=== PATIENT | female | born 1940 | race Caucasian/White ===

== ENCOUNTER 2017-05-14 05:47 | Outpatient (CLI) | payer MEDICARE, OTHER ==
[~2017-05-14] VITALS: Ht 149.9 cm; Wt 78.9 kg
[~2017-05-14 05:47] MED LIST: NAPR-243 PO; TRM50T PO
[2017-05-14] MEDS ORDERED: SITA1TAB6 PO (14:14)
[2017-05-14] MEDS ORDERED: TRAM50TA2 PO (14:14)
[2017-05-14] MEDS ORDERED: SIMV20TA3 PO (14:14)
[2017-05-14] MEDS ORDERED: ENAL10TA PO (14:14)
[2017-05-14] MEDS ORDERED: CETI10TA17 PO (14:14)
[2017-05-14] MEDS ORDERED: CYCL5TAB PO (14:14)
[2017-05-14] MEDS ORDERED: CLOP75TA28 PO (14:14)
== END 2017-05-14 14:15 ==
LOC: PREOP 05:47
PROVIDERS: ATTEND Surgery
DX: Z01.818 Encounter for other preprocedural examination (principal); Z86.010 Personal history of colon polyps

== ENCOUNTER 2017-05-21 08:27 | Day surgery (SDC) | payer MEDICARE, OTHER ==
[~2017-05-21] VITALS: Ht 149.9 cm; Wt 78.9 kg
[~2017-05-21 08:27] MED LIST changes: +CETI10TA17 PO; +CLOP75TA28 PO; +CYCL5TAB PO; +ENAL10TA PO; +SIMV20TA3 PO; +SITA1TAB6 PO; +TRAM50TA2 PO
[2017-05-21] MEDS ORDERED: NS IV 500 ML 500 ML ONE (08:28)
[2017-05-21] MEDS ORDERED: NS IV 500 ML 500 ML IV PRN (08:36)
[2017-05-21 09:07] VITALS: BP 150/71
--- NOTE | 2017-05-21 09:22 | History & Physicial ---
History of Present Illness History of Present Illness Reason for visit/HPI to undergo surveillance colonoscopy. Previous history of right colon resection to manage a sessile polyp Date of Admission 05/21/17 Date Seen by Provider: May 21, 2017 Time Seen by Provider: 09:21 I consulted on this patient on 05/21/17 09:21 Attending Physician Summer Dean MD Admitting Physician Lisa Del Toro MD Consult Allergies and Home Medications Allergies Coded Allergies: Cephalexin Monohydrate (Verified Allergy, Unknown, 05/21/17) Cephalosporins (Verified Allergy, Unknown, 05/21/17) Penicillins (Verified Allergy, Unknown, 05/21/17) Soap (Verified Allergy, Unknown, 05/21/17) Sulfa (Sulfonamide Antibiotics) (Verified Allergy, Unknown, 05/21/17) acetaminophen (Verified Allergy, Unknown, 05/21/17) aspirin (Verified Allergy, Unknown, 05/21/17) codeine (Verified Allergy, Unknown, 05/21/17) hydrocodone bit (Verified Allergy, Unknown, 05/21/17) meloxicam (Verified Allergy, Unknown, 05/21/17) morphine (Verified Allergy, Unknown, 05/21/17) oxycodone (Verified Allergy, Unknown, 05/21/17) povidone-iodine (Verified Allergy, Unknown, 05/21/17) Home Medications Cetirizine HCl 10 Mg Tablet, 10 MG PO DAILY, (Reported) Clopidogrel Bisulfate 75 Mg Tablet, 75 MG PO DAILY, (Reported) Cyclobenzaprine HCl 5 Mg Tablet, 5 MG PO BID PRN for MUSCLE SPASMS, (Reported) Enalapril Maleate 10 Mg Tablet, 10 MG PO BID, (Reported) Simvastatin 20 Mg Tablet, 20 MG PO DAILY, (Reported) Sitagliptin Phos/Metformin HCl 1 Each Tablet, 1 EACH PO BID, (Reported) Tramadol HCl 50 Mg Tablet, 50-100 MG PO Q4H PRN for PAIN-MILD TO MODERATE, ( Reported) take 1-2 (50mg) tabs Past Wiiodhs-Dhwilw-Nowmoo Hx Patient Social History Marrital Status: Employed/Student: retired Alcohol Use: Denies Use Recreational Drug Use: No Smoking Status: Never a Smoker Recent Foreign Travel: No Contact w/other who traveled: No Recent Hopitalizations: No Recent Infectious Disease Expo: No Immunizations Up To Date Tetanus Booster (TDap): Unknown Date of Influenza Vaccine: Jan 11, 2017 Seasonal Allergies Seasonal Allergies: Yes Surgeries Bladder Surgery, Eye Surgery, Gallbladder, Tonsillectomy Respiratory Currently Using CPAP: Yes Currently Using BIPAP: No Cardiovascular Hypertension Neurological Stroke Reproductive System Hx Reproductive Disorders: No Sexually Transmitted Disease: No HIV/AIDS: No Female Reproductive Disorders: Denies Gastrointestinal Gastroesophageal Reflux, Polyps, Irritable Bowel Musculoskeletal Arthritis, Chronic Back Pain HEENT Loss of Vision: Bilateral Psychosocial Behavioral Health Disorders: Depression Constitutional: no symptoms reported EENTM: no symptoms reported Respiratory: no symptoms reported Cardiovascular: no symptoms reported Gastrointestinal: no symptoms reported Genitourinary: no symptoms reported Musculoskeletal: no symptoms reported Skin: no symptoms reported Psychiatric/Neurological: No Symptoms Reported Physical Exam Vital Signs Vital Signs - First Documented 05/21/17 09:07 Temp 98.2 Pulse 65 Resp 18 B/P (MAP) 150/71 (97) Pulse Ox 97 O2 Delivery Room Air Capillary Refill : General Appearance: No Apparent Distress HEENT: Normal ENT Inspection Neck: Normal Inspection Respiratory: Lungs Clear Cardiovascular: Regular Rate, Rhythm Gastrointestinal: Non Tender, Soft Rectal: Deferred Extremity: Normal Inspection Neurologic/Psychiatric: Oriented x3 Skin: Warm/Dry Assessment/Plan Assessment and Plan lady with a previous history of sessile polyp at the right colon. For surveillance colonoscopy Problems: SUMMER DEAN MD May 21, 2017 9:22 am
--- NOTE | 2017-05-21 09:23 | Conscious Sedation/ASA ---
Conscious Sedation Pre-Proced Time Reviewed: 09:23 ASA Class: 2 Airway Mallampati Classification: ([place] appropriate class) I. II. III, IV Lungs Heart ASA score ASA 1: a normal healthy patient ASA 2: a patient with a mild systemic disease (mid diabetes, controlled hypertension, obesity ASA 3: a patient with a severe systemic disease that limits activity (angina , COPD, prior Myocardial infarction) ASA 4: a patient with an incapacitating disease that is a constant threat to life (CHF, renal failure) ASA 5: a moribund patient not expected to survive 24 hrs. (ruptured aneurysm) ASA 6: a declared brain patient whose organs are being harvested. For emergent operations, add the letter E after the classification Grade 1 Sedation Plan: Discussed options with patient/fam Note The patient is an appropriate candidate to undergo the planned procedure, sedation, and anesthesia. The patient immediately re-assessed prior to indication. SUMMER CLEMONS MD May 21, 2017 9:23 am
[2017-05-21] MEDS ORDERED: MIDAZOLAM 2 MG/2 ML (VERSED) VIAL ONE ×4 (09:43→09:44)
[2017-05-21] MEDS ORDERED: fentaNYL INJECTION 100 MCG/2 ML AMP ONE (09:43)
[2017-05-21] MEDS: MIDAZOLAM 2 MG/2 ML (VERSED) VIAL IVP PRN ×4 (09:56→10:07)
[2017-05-21] MEDS: fentaNYL INJECTION 100 MCG/2 ML AMP IVP PRN ×2 (09:57→10:01)
--- NOTE | 2017-05-21 10:16 | Endo Procedure Record ---
Endo Procedure Report Date of Procedure Last Colonoscopy: Yes (unsure) May 21, 2017 Surgeon (s) SUMMER CLEMONS MD Post Procedure/Op Diagnosis Very few sigmoid diverticula Procedure Performed Colonoscopy to ileocolic anastomosis Description of Procedure Anesthesia Type: Conscious Sedation Specimen(s) collected/removed none Description of the Procedure Indication for the procedure: This lady had undergone right hemicolectomy to manage his sessile polyp, about 7 years ago. She returned for surveillance colonoscopy. Informed consent was obtained after reviewing the procedure in detail. Description of the procedure: She was placed in left lateral decubitus position and her vital signs were monitored. Conscious sedation was achieved using Versed and fentanyl. Digital rectal examination was unremarkable. The colonoscope was then introduced in the rectum and advanced to the ileocolic anastomosis. The scope was then withdrawn slowly and the mucosa examined in a systematic fashion. Findings: Very few, scattered sigmoid diverticulae. No recurrent polyps were found She tolerated the procedure well and was taken back to the nursing area in a stable condition Impression: Polyp surveillance. No recurrence. Recommend repeating in 5 years. Copies To: LUIS GREEN MD, XAVIER M MD May 21, 2017 10:16 am
--- NOTE | 2017-05-21 10:18 | Discharge Inst-Simple/Standard ---
Discharge Inst-Standard Discharge Medications New, Converted or Re-Newed RX: Other Patient Instructions/Follow Up Plan of Care/Instructions/FU: Repeat colonoscopy in 5 years Activity as Tolerated: Yes Discharge Diet: No Restrictions SUMMER CLEMONS MD May 21, 2017 10:18 am
[2017-05-21 10:35] VITALS: BP 118/56
[2017-05-21 11:00] VITALS: BP 120/65
[2017-05-21 11:35] VITALS: BP 120/65
== END 2017-05-21 11:35 | disposition home or self-care (01) ==
LOC: ENDO 08:27
PROVIDERS: ATTEND Surgery
DX: Z12.11 Encounter for screening for malignant neoplasm of colon (principal); K57.30 Diverticulosis of large intestine without perforation or abscess without bleeding; Z86.010 Personal history of colon polyps; K21.9 Gastro-esophageal reflux disease without esophagitis; M19.91 Primary osteoarthritis, unspecified site; Z79.899 Other long term (current) drug therapy

== ENCOUNTER 2017-12-10 09:51 | Emergency (ER) | payer MEDICARE ==
[~2017-12-10] VITALS: Ht 152.4 cm; Wt 66.7 kg
[2017-12-10 11:19] LABS: BASOPHILS % (AUTO) 1 % (0-10); EOSINOPHILS # (AUTO) 0.1 10^3/uL (0.0-0.3); EOSINOPHILS % (AUTO) 2 % (0-10); HEMATOCRIT 36 % (35-52); HEMOGLOBIN 11.7 G/DL (11.5-16.0); LYMPHOCYTES # (AUTO) 2.3 X 10^3 (1.0-4.0); LYMPHOCYTES % (AUTO) 40 % (12-44); MEAN CORPUSCULAR HEMOGLOBIN 30 PG (25-34); MEAN CORPUSCULAR HGB CONC 33 G/DL (32-36); MEAN CORPUSCULAR VOLUME 90 FL (80-99); MEAN PLATELET VOLUME 10.1 FL (7.4-10.4); MONOCYTES # (AUTO) 0.4 X 10^3 (0.0-1.0); MONOCYTES % (AUTO) 7 % (0-12); NEUTROPHILS # (AUTO) 2.9 X 10^3 (1.8-7.8); NEUTROPHILS % (AUTO) 50 % (42-75); PLATELET COUNT 217 10^3/uL (130-400); RED BLOOD COUNT 3.97 10^6/uL (4.35-5.85); RED CELL DISTRIBUTION WIDTH 13.6 % (10.0-14.5); WHITE BLOOD COUNT 5.8 10^3/uL (4.3-11.0)
--- NOTE | 2017-12-10 11:25 | ED Lower Extremity ---
General Chief Complaint: Lower Extremity Stated Complaint: LEG CRAMPS Nursing Triage Note: BILAT LEG CRAMPS Nursing Sepsis Screen: No Definite Risk Source: patient, other (roomate) Exam Limitations: no limitations History of Present Illness Date Seen by Provider: Dec 10, 2017 Time Seen by Provider: 11:00 Initial Comments Patient is a 77-year-old female who presents to the emergency room with bilateral leg cramps her around 3 weeks. She's had this in the past but they're affecting her sleep more this past 3 weeks. Her primary care provider is Dr. DEL TORO. She denies shortness of breath or calf pain. She also reports that she has swelling from time to time. Her legs are not swollen today. Onset: other (3 weeks) Method of Injury: other (denies injury) Allergies and Home Medications Allergies Coded Allergies: Cephalexin Monohydrate (Verified Allergy, Unknown, 05/21/17) Cephalosporins (Verified Allergy, Unknown, 05/21/17) Penicillins (Verified Allergy, Unknown, 05/21/17) Soap (Verified Allergy, Unknown, 05/21/17) Sulfa (Sulfonamide Antibiotics) (Verified Allergy, Unknown, 05/21/17) acetaminophen (Verified Allergy, Unknown, 05/21/17) aspirin (Verified Allergy, Unknown, 05/21/17) codeine (Verified Allergy, Unknown, 05/21/17) hydrocodone bit (Verified Allergy, Unknown, 05/21/17) meloxicam (Verified Allergy, Unknown, 05/21/17) morphine (Verified Allergy, Unknown, 05/21/17) oxycodone (Verified Allergy, Unknown, 05/21/17) povidone-iodine (Verified Allergy, Unknown, 05/21/17) Home Medications Cetirizine HCl 10 Mg Tablet, 10 MG PO DAILY, (Reported) Clopidogrel Bisulfate 75 Mg Tablet, 75 MG PO DAILY, (Reported) Cyclobenzaprine HCl 5 Mg Tablet, 5 MG PO BID PRN for MUSCLE SPASMS, (Reported) Enalapril Maleate 10 Mg Tablet, 10 MG PO BID, (Reported) Simvastatin 20 Mg Tablet, 20 MG PO DAILY, (Reported) Sitagliptin Phos/Metformin HCl 1 Each Tablet, 1 EACH PO BID, (Reported) Tramadol HCl 50 Mg Tablet, 50-100 MG PO Q4H PRN for PAIN-MILD TO MODERATE, ( Reported) take 1-2 (50mg) tabs Patient Home Medication List Home Medication List Reviewed: Yes Review of Systems Constitutional: see HPI; No chills, No fever Musculoskeletal: see HPI, muscle cramps (bilateral lower extremities) All Other Systems Reviewed Negative Unless Noted: Yes Past Azgshrp-Mxnanj-Tnbdwj Hx Past Med/Social Hx: Reviewed Nursing Past Med/Soc Hx Patient Social History Alcohol Use: Denies Use Recreational Drug Use: No Smoking Status: Never a Smoker Recent Foreign Travel: No Contact w/Someone Who Travel: No Recent Infectious Disease Expo: No Recent Hopitalizations: No Immunizations Up To Date Tetanus Booster (TDap): Unknown Date of Influenza Vaccine: Jan 11, 2017 Seasonal Allergies Seasonal Allergies: Yes Past Medical History Surgeries: Yes (bilat CTR, colon resection, R knee, R shoulder, teeth extraction, back sx2) Bladder Surgery, Eye Surgery, Gallbladder, Tonsillectomy Respiratory: Yes Sleep Apnea Currently Using CPAP: Yes Currently Using BIPAP: No Cardiac: Yes Hypertension Neurological: Yes Stroke Reproductive Disorders: No Female Reproductive Disorders: Denies Sexually Transmitted Disease: No HIV/AIDS: No Gastrointestinal: Yes Gastroesophageal Reflux, Polyps, Irritable Bowel Musculoskeletal: Yes Arthritis, Chronic Back Pain Endocrine: Yes Loss of Vision: Bilateral Cancer: No Psychosocial: Yes Depression Integumentary: No Blood Disorders: No Family Medical History Reviewed Nursing Family Hx Physical Exam Vital Signs Vital Signs - First Documented 12/10/17 10:13 Temp 98.0 Pulse 74 Resp 16 B/P (MAP) 131/69 (89) Pulse Ox 99 O2 Delivery Room Air Capillary Refill : Less Than 3 Seconds Height, Weight, BMI Height: 5'11.00" Weight: 147lbs. 0.0oz. 66.411196cr; 35.1 BMI Method:Stated General Appearance: WD/WN, no apparent distress Cardiovascular: normal peripheral pulses, regular rate, rhythm, no edema, no gallop, no JVD, no murmur Respiratory: chest non-tender, lungs clear, normal breath sounds, no respiratory distress, no accessory muscle use Hips: bilateral hip non-tender, bilateral hip normal inspection, bilateral hip normal range of motion, bilateral hip no evidence of injury Legs: bilateral leg non-tender, bilateral leg normal inspection, bilateral leg normal range of motion, bilateral leg no evidence of injury Knees: bilateral knee non-tender, bilateral knee normal inspection, bilateral knee normal range of motion, bilateral knee no evidence of injury Ankles: bilateral ankle non-tender, bilateral ankle normal inspection, bilateral ankle normal range of motion, bilateral ankle no evidence of injury Feet: bilateral foot non-tender, bilateral foot normal inspection, bilateral foot normal range of motion, bilateral foot no evidence of injury Neurologic/Tendon: normal sensation, normal motor functions, normal tendon functions Neurologic/Psychiatric: alert, normal mood/affect, oriented x 3 Skin: normal color, warm/dry Lymphatic: no adenopathy Progress/Results/Core Measures Results/Orders Lab Results Laboratory Tests Test 12/10/17 11:05 Range/Units White Blood Count 5.8 4.3-11.0 10^3/uL Red Blood Count 3.97 L 4.35-5.85 10^6/uL Hemoglobin 11.7 11.5-16.0 G/DL Hematocrit 36 35-52 % Mean Corpuscular Volume 90 80-99 FL Mean Corpuscular Hemoglobin 30 25-34 PG Mean Corpuscular Hemoglobin Concent 33 32-36 G/DL Red Cell Distribution Width 13.6 10.0-14.5 % Platelet Count 217 130-400 10^3/uL Mean Platelet Volume 10.1 7.4-10.4 FL Neutrophils (%) (Auto) 50 42-75 % Lymphocytes (%) (Auto) 40 12-44 % Monocytes (%) (Auto) 7 0-12 % Eosinophils (%) (Auto) 2 0-10 % Basophils (%) (Auto) 1 0-10 % Neutrophils # (Auto) 2.9 1.8-7.8 X 10^3 Lymphocytes # (Auto) 2.3 1.0-4.0 X 10^3 Monocytes # (Auto) 0.4 0.0-1.0 X 10^3 Eosinophils # (Auto) 0.1 0.0-0.3 10^3/uL Basophils # (Auto) 0.0 0.0-0.1 10^3/uL Sodium Level 139 135-145 MMOL/L Potassium Level 4.3 3.6-5.0 MMOL/L Chloride Level 108 H 98-107 MMOL/L Carbon Dioxide Level 21 21-32 MMOL/L Anion Gap 10 5-14 MMOL/L Blood Urea Nitrogen 23 H 7-18 MG/DL Creatinine 1.13 0.60-1.30 MG/DL Estimat Glomerular Filtration Rate 47 BUN/Creatinine Ratio 20 Glucose Level 103 70-105 MG/DL Calcium Level 9.6 8.5-10.1 MG/DL Corrected Calcium 9.6 8.5-10.1 MG/DL Total Bilirubin 0.7 0.1-1.0 MG/DL Aspartate Amino Transf (AST/SGOT) 24 5-34 U/L Alanine Aminotransferase (ALT/SGPT) 20 0-55 U/L Alkaline Phosphatase 60 40-136 U/L Total Creatine Kinase 379 H 29-168 U/L Myoglobin 135.4 H 10.0-92.0 NG/ML B-Type Natriuretic Peptide 78.9 <100.0 PG/ML Total Protein 6.9 6.4-8.2 GM/DL Albumin 4.0 3.2-4.5 GM/DL My Orders Orders - RANDY SOLIS Cbc With Automated Diff (12/10/17 10:57) Comprehensive Metabolic Panel (12/10/17 10:57) BNP (12/10/17 10:57) Creatine Kinase (12/10/17 11:00) Myoglobin Serum (12/10/17 11:00) General/Regular (12/10/17 Lunch) Ns Iv 1000 Ml (Sodium Chloride 0.9%) (12/10/17 12:00) Vital Signs/I&O 12/10/17 12/10/17 10:13 12:55 Temp 98.0 Pulse 74 77 Resp 16 16 B/P (MAP) 131/69 (89) 129/56 Pulse Ox 99 97 O2 Delivery Room Air Room Air Blood Pressure Mean: 89 Progress Progress Note : Time: 12:30 Progress Note I have seen and evaluated the patient. I have informed her of laboratory findings and the need for IV fluids. I have instructed her on the importance of close follow up with Dr. Del Toro. Return precautions were given. Departure Impression Primary Impression: Myalgia Additional Impression: Rhabdomyolysis Qualified Codes: M62.82 - Rhabdomyolysis Disposition: 01 HOME, SELF-CARE Condition: Stable/Unchanged Departure-Patient Inst. Decision time for Depature: 12:45 Referrals: LUIS DEL TORO MD (PCP/Family) Primary Care Physician Patient Instructions: Rhabdomyolysis (DC) Add. Discharge Instructions: Ensure that you are drinking plenty of clear liquids like water to stay hydrated. I want you to see Dr. Rowley within 1 week for recheck and let her know that you were seen in the emergency room today. Call first thing tomorrow morning for an appointment time. Return back to the emergency room for any worsening symptoms or concerns as needed. You may use the tonic water and sugar- free med ayana as this might aid with the muscle cramps at night. All discharge instructions reviewed with patient and/or family. Voiced understanding. RANDY SOLIS Dec 10, 2017 11:25
[2017-12-10 11:38] LABS: BILIRUBIN,TOTAL 0.7 MG/DL (0.1-1.0); CALCIUM 9.6 MG/DL (8.5-10.1); CREATININE SERUM 1.13 MG/DL (0.60-1.30); POTASSIUM 4.3 MMOL/L (3.6-5.0); TOTAL PROTEIN 6.9 GM/DL (6.4-8.2)
[2017-12-10 11:44] LABS: MYOGLOBIN SERUM 135.4 NG/ML (10.0-92.0)
[2017-12-10] MEDS ORDERED: NS IV 1000 ML 1,000 ML IV SCH (12:00)
[2017-12-10 12:55] VITALS: BP 129/56
== END 2017-12-10 12:55 | disposition home or self-care (01) ==
LOC: EDUNIT# 09:51 → ER 09:52
DX: M62.82 Rhabdomyolysis (principal); M79.1 Myalgia; R25.2 Cramp and spasm; I10 Essential (primary) hypertension; K21.9 Gastro-esophageal reflux disease without esophagitis; F32.9 Major depressive disorder, single episode, unspecified; Z87.19 Personal history of other diseases of the digestive system; Z86.73 Personal history of transient ischemic attack (TIA), and cerebral infarction without residual deficits; Z88.1 Allergy status to other antibiotic agents; Z88.0 Allergy status to penicillin; Z88.2 Allergy status to sulfonamides; Z88.6 Allergy status to analgesic agent; Z91.041 Radiographic dye allergy status; Z88.8 Allergy status to other drugs, medicaments and biological substances; Z79.84 Long term (current) use of oral hypoglycemic drugs; Z90.89 Acquired absence of other organs
CPT/HCPCS: 36415; 80053; 82550; 83874; 83880; 85025; 96360; 99283

== ENCOUNTER → 2017-12-10 | Outpatient (CLI) | payer MEDICARE | LOC: LABNPT 11:00 → LAB 12-12 18:26 | PROVIDERS: ATTEND Nurse Practitioner Family | DX: M62.838 Other muscle spasm (principal) | CPT/HCPCS: 36415; 83735 ==

== ENCOUNTER → 2018-01-28 | Outpatient (CLI) | payer MEDICARE ==
--- NOTE | 2018-01-28 14:18 | Diagnostic Imaging Report ---
EXAMINATION: Magnetic resonance imaging of the right shoulder without contrast. DATE: January 28, 2018. COMPARISON: None. HISTORY: 77-year-old female, injury lifting 2-3 months ago. Right shoulder pain with difficulties with range of motion. TECHNIQUE: Magnetic Resonance Imaging sequences were performed of the shoulder without contrast. FINDINGS: ROTATOR CUFF, LIGAMENTS, TENDONS, AND MUSCLES: There is tendinopathy of supraspinatus with a roughly 50% partial articular sided tear of the supraspinatus tendon with torn and retracted tendon fibers just medial to the superior humeral head which are retracted by approximately 3 cm measured on coronal T2 fat saturation sequence image 10. There is infraspinatus tendinopathy. The teres minor tendon is intact. The subscapularis tendon is grossly intact. There is no pronounced fatty atrophy of the rotator cuff musculature. LONG HEAD OF BICEPS: There is an anchor in the humeral head in the region of the lower aspect of the bicipital groove which may potentially reflect biceps tenodesis. Recommend correlation with history. There is also an anchor tract noted more superiorly within the bicipital groove without the biceps tendon extending to this level. GLENOHUMERAL JOINT: The humeral head is well positioned relative to the glenoid. There are some limitations of labral evaluation given lack of fat saturation to the axial T2 sequence. There is no discretely identified labral tear. There is no identified paralabral cyst. There is mild irregularity of cartilage of the upper glenoid with mild degenerative related marrow changes in the superior glenoid. There is also degenerative related marrow edema in the mid anterior glenoid. There is a small glenohumeral joint effusion. ACROMIOCLAVICULAR JOINT: There is widening of the acromioclavicular joint which may relate to prior distal clavicle resection. The coracoclavicular and coracoacromial ligaments are intact. There are no chronic fibular joint osteophytes. There is fluid within the expected location of the acromioclavicular joint with low signal internal foci compatible with synovitis.. BONE: There is no acute fracture, bone contusion, or evidence of osteonecrosis. Edema like signal in the superior humeral head in the region of the supraspinatus and infraspinatus tendon insertions is likely related to the rotator cuff tendon pathology. BURSAE AND SOFT TISSUES: There is fluid within the subacromial subdeltoid bursa compatible with bursitis and/or recent injection. IMPRESSION: 1. 50% partial thickness articular sided tear of the supraspinatus tendon with tendon retraction just medial to the superior humeral head by 3 cm. No fatty muscle atrophy of the rotator cuff musculature. Infraspinatus tendinopathy. 2. Postoperative changes of distal clavicle resection without undersurface acromioclavicular osteophytes. Fluid within the expected location of the acromioclavicular joint with low signal internal foci compatible with synovitis. 3. Small glenohumeral joint effusion with mild glenohumeral osteoarthritis. No definite labral tear. 4. No acute fracture or evidence of osteonecrosis. Edema like signal in the superior humeral head underlying the supraspinatus and infraspinatus tendon attachment likely relates to the rotator cuff tendon pathology. 5. Probable postoperative changes of biceps tenodesis. 6. Fluid within the subacromial subdeltoid bursa compatible with bursitis and/or recent injection. Dictated by: Dictated on workstation # [id number]
== END ==
LOC: RAD 09:45
PROVIDERS: ATTEND Nurse Practitioner
DX: S46.011A Strain of muscle(s) and tendon(s) of the rotator cuff of right shoulder, initial encounter (principal); X50.9XXA Other and unspecified overexertion or strenuous movements or postures, initial encounter; M19.011 Primary osteoarthritis, right shoulder; Z98.890 Other specified postprocedural states
CPT/HCPCS: 73221

== ENCOUNTER → 2018-12-06 | Outpatient (CLI) | payer MEDICARE ==
[~2018-12-06] MED LIST changes: +GADOBUTROL 10 MMOL/10 ML (GADAVIST) VIAL IV ONE
[2018-12-06 13:50] LABS: BILIRUBIN,TOTAL 0.4 MG/DL (0.1-1.0); CALCIUM 9.8 MG/DL (8.5-10.1); CREATININE SERUM 1.23 MG/DL (0.60-1.30); POTASSIUM 4.5 MMOL/L (3.6-5.0); TOTAL PROTEIN 7.3 GM/DL (6.4-8.2)
--- NOTE | 2018-12-06 15:32 | Diagnostic Imaging Report ---
CLINICAL INDICATION: Patient having headaches that are interfering with her vision. EXAM: MRI of the brain performed without IV contrast. Sequences include axial DWI, ADC map, axial T2, axial FLAIR, axial T1, coronal gradient echo, and sagittal T1. COMPARISON: None. FINDINGS: There is no evidence of acute cerebral infarct, intracranial hemorrhage, or gross mass effect. There is diffuse brain parenchymal volume loss. There are small patchy areas of chronic infarct involving the cortical, subcortical areas of the bilateral frontal lobes and bilateral occipital lobes. There is a moderate-sized area of encephalomalacia involving the medial right occipital lobe and posterior medial right temporal lobe with cystic encephalomalacia and mild adjacent gliosis. There is a small chronic infarct involving the right cerebellum. Suspected small perivascular space involving the posterior left brandie region. There are other small areas of high T2 signal white matter changes involving both cerebral hemispheres, likely representing chronic small vessel ischemic disease. There is normal degroot-white matter distinction. There is no significant midline shift or herniation. There is no evidence of hydrocephalus. The basal cisterns are unremarkable. The skull, extracranial soft tissue, and orbits are unremarkable. The paranasal sinuses are unremarkable. Temporal bones show no significant abnormality. IMPRESSION: 1: There is no evidence of acute intracranial process. There is no acute cerebral infarct, intracranial hemorrhage, or hydrocephalus. 2: There is a moderate-sized chronic cerebral infarct involving the medial right occipital lobe and medial posterior right temporal lobe which correlates to right FINISH REMOVER distribution. 3: There are small areas of chronic infarcts involving the bilateral frontal lobes, left occipital lobe and right cerebellum. Dictated by: Dictated on workstation # [id number]
== END ==
LOC: RAD 12:52
PROVIDERS: ATTEND Nurse Practitioner Family
DX: I63.89 Other cerebral infarction (principal)
CPT/HCPCS: 36415; 70551; 80053

== ENCOUNTER → 2019-01-29 | Outpatient (CLI) | payer MEDICARE ==
[~2019-01-29] MED LIST changes: -GADOBUTROL 10 MMOL/10 ML (GADAVIST) VIAL IV ONE
--- NOTE | 2019-01-29 11:35 | Diagnostic Imaging Report ---
PROCEDURE: US carotid duplex, bilateral. TECHNIQUE: Multiple real-time grayscale images were obtained over the carotid arteries in various projections, bilaterally. Additional spectral analysis and color Doppler duplex images were also obtained. INDICATION: Stroke. FINDINGS: There is mild plaquing at the carotid bifurcations bilaterally as well as proximal internal carotid arteries. There is some velocity elevation in the proximal and mid right internal carotid artery reaching 190 cm/s. Velocities on the left are unremarkable. Both vertebral arteries show antegrade flow. IMPRESSION: Mild bilateral carotid plaque. Velocity measurements in the right internal carotid artery are consistent with 60-79% diameter stenosis. Parameters based on the consensus panel Daiz-Scale and Doppler ultrasound criteria published February 2003, Radiology, Volume 229. DOPPLER (peak systolic velocity M/S Right Left CCA .68 .95 ICA Proximal 1.49 .60 ICA Mid 1.90 1.08 ICA Distal .62 1.09 RATIO 2.7 1.1 ECA .97 .74 VERT .87 .65 Dictated by: Dictated on workstation # [id number]
== END ==
LOC: RAD 09:38
PROVIDERS: ATTEND Psychiatry & Neurology Neurology
DX: I65.23 Occlusion and stenosis of bilateral carotid arteries (principal); I63.9 Cerebral infarction, unspecified
CPT/HCPCS: 93880

== ENCOUNTER → 2019-02-21 | Outpatient (CLI) | payer MEDICARE ==
--- NOTE | 2019-02-21 12:30 | Diagnostic Imaging Report ---
INDICATION: Right foot pain. 3 views of the right foot show no fracture or dislocation. There is mild hallux valgus deformity. IMPRESSION: No acute abnormality seen in the right foot. Dictated by: Dictated on workstation # [id number]
--- NOTE | 2019-02-21 12:31 | Diagnostic Imaging Report ---
INDICATION: Right ankle injury. 3 views the right ankle show no fracture, dislocation or other acute abnormalities. IMPRESSION: Negative right ankle. Dictated by: Dictated on workstation # [id number]
== END ==
LOC: RAD 11:25
PROVIDERS: ATTEND Nurse Practitioner Family
DX: S99.911A Unspecified injury of right ankle, initial encounter (principal); M79.671 Pain in right foot
CPT/HCPCS: 73610; 73630

== ENCOUNTER 2019-04-25 11:23 | Outpatient (RCR) | payer MEDICARE, OTHER ==
[~2019-04-25 11:23] MED LIST changes: +SIMV20TA26 PO; -SIMV20TA3 PO; -TRAM50TA2 PO
== END 2019-07-24 | disposition home or self-care (01) ==
LOC: CARD 11:23
PROVIDERS: ATTEND Internal Medicine Cardiovascular Disease
DX: I11.9 Hypertensive heart disease without heart failure (principal); E11.9 Type 2 diabetes mellitus without complications; I49.3 Ventricular premature depolarization
CPT/HCPCS: 93225; 93226; 93306

== ENCOUNTER 2019-12-03 13:00 | Day surgery (SDC) | payer MEDICARE ==
[~2019-12-03] VITALS: Ht 149 cm; Wt 80.0 kg
[2019-12-03] VITALS (10 sets, daily range): BP systolic 93–133; BP diastolic 48–71
[2019-12-03 11:59] LABS: HEMOGLOBIN 12.9 G/DL (11.5-16.0); MEAN PLATELET VOLUME 9.9 FL (7.4-10.4); RED CELL DISTRIBUTION WIDTH 12.9 % (10.0-14.5); WHITE BLOOD COUNT 6.7 10^3/uL (4.3-11.0)
--- NOTE | 2019-12-03 12:13 | Diagnostic Imaging Report ---
INDICATION: Preop for heart catheterization. TIME OF EXAM: 11:43 a.m. COMPARISON: Comparison is made with prior chest from 10/28/2011. FINDINGS: The heart size is normal. The pulmonary vascularity is unremarkable. The lungs are clear. No infiltrate, effusion or pneumothorax is detected. IMPRESSION: No acute cardiopulmonary process is detected. Dictated by: Dictated on workstation # [id number]
[2019-12-03 12:21] LABS: ALBUMIN 4.1 GM/DL (3.2-4.5); BILIRUBIN,TOTAL 0.7 MG/DL (0.1-1.0); CALCIUM 9.9 MG/DL (8.5-10.1); CREATININE SERUM 1.27 MG/DL (0.60-1.30); POTASSIUM 3.9 MMOL/L (3.6-5.0); TOTAL PROTEIN 7.2 GM/DL (6.4-8.2)
[2019-12-03 12:24] LABS: PROTHROMBIN TIME PATIENT 13.1 SEC (12.2-14.7)
[~2019-12-03 13:00] MED LIST changes: +BACITRACIN INJECTION 50,000 UNIT, SODIUM CHLORIDE 0.9% IRRIGATIO 500 ML IR ONE; +HEParin (CATH LAB) 1,000 ML IV ONE; +LIDOCAINE 1% INJ 20 ML 20 ML VIAL ONE; +NS IV 1000 ML 1,000 ML IV ONE; +NS IV 1000 ML 1,000 ML ONE
[2019-12-03] MEDS ORDERED: [UNRECOGNIZED DRUG - CODE] TP ×2 (13:03)
[2019-12-03] MEDS ORDERED: MELA5TAB14 PO (13:03)
[2019-12-03] MEDS ORDERED: ASCO10006 PO (13:03)
[2019-12-03] MEDS ORDERED: POTA99TA21 PO (13:03)
[2019-12-03] MEDS ORDERED: LATA7.5D OU (13:03)
[2019-12-03] MEDS ORDERED: GABA-486 PO (13:03)
[2019-12-03] MEDS ORDERED: INSU100V37 SQ (13:03)
[2019-12-03] MEDS ORDERED: TRAM50TA3 PO (13:03)
[2019-12-03] MEDS ORDERED: MAGN500C15 PO (13:03)
[2019-12-03] MEDS ORDERED: HYDR25TA4 PO (13:03)
[2019-12-03] MEDS ORDERED: ASPI-999 PO (13:03)
[2019-12-03] MEDS ORDERED: MTP25TSR PO (13:03)
[2019-12-03] MEDS ORDERED: ROPI0.253 PO (13:03)
[2019-12-03] MEDS ORDERED: MENT118G TP (13:03)
[2019-12-03] MEDS ORDERED: DICL100G18 TP (13:28)
[2019-12-03] MEDS ORDERED: fentaNYL INJECTION 100 MCG/2 ML AMP ONE (14:03)
[2019-12-03] MEDS ORDERED: VERAPAMIL 5 MG/2 ML (CALAN) VIAL IV ONE (14:03)
[2019-12-03] MEDS ORDERED: MIDAZOLAM 5 MG/5 ML (VERSED) VIAL ONE (14:03)
[2019-12-03] MEDS ORDERED: HEParin 1000 UNIT/ML (10ML VIAL) FOR BOLUS ONE (14:04)
[2019-12-03] MEDS ORDERED: NITRO DRIP 25000 MCG/D5W 250 ML IV ONE (14:04)
--- NOTE | 2019-12-03 14:05 | Cardiac Procedure Note-CS/ASA ---
Pre-Procedure Note Pre-Op Procedure Note H&P Reviewed The H&P was reviewed, patient examined and no changes noted. Date H&P Reviewed: Dec 03, 2019 Time H&P Reviewed: 14:05 Conscious Sedation Pre-Proced Time 14:05 ASA Score 3 For ASA 3 and 4: Consider anesthesia and medical clearance. Also, for patients with a history of failed moderate sedation consider anesthesia. Airway Lungs Heart ASA score ASA 1: a normal healthy patient ASA 2: a patient with a mild systemic disease (mid diabetes, controlled hypertension, obesity x ASA 3: a patient with a severe systemic disease that limits activity (angina, COPD, prior Myocardial infarction) ASA 4: a patient with an incapacitating disease that is a constant threat to life (CHF, renal failure) ASA 5: a moribund patient not expected to survive 24 hrs. (ruptured aneurysm) ASA 6: a declared brain- patient whose organs are being harvested. For emergent operations, add the letter E after the classification Mallampati Classification Grade 3 Sedation Plan Analgesia, Amnesia, Plan communicated to team members, Discussed options with patient/fam, Discussed risks with patient/fam The patient is an appropriate candidate to undergo the planned procedure, sedation, and anesthesia. The patient immediately re-assessed prior to indication. MARIAH ARCEO MD Dec 03, 2019 14:05
--- NOTE | 2019-12-03 14:08 | NUR ---
I WENT THROUGH PATIENT'S HOME MEDS WITH HER THAT SHE BROUGHT, AND I CALLED [facility] TO COMPLETE THIS MED REC METOPROLOL SUCCINATE ER 25MG LAST FILLED 08/18/2019 #90 HYDROCHLOROTHIAZIDE 25MG LAST FILLED 10/11/2019 #90 TRAMADOL 50MG LAST FILLED 11/12/2019 #120 ROPINIROLE 0.25MG LAST FILLED 11/04/2019 #90 ENALAPRIL 10MG LAST FILLED 11/23/2019 #180 GABAPENTIN 100MG LAST FILLED 10/27/2019 #180 CLOPIDOGREL 75MG 09/15/2019 #90 DICLOFENAC 1% LAST FILLED 11/11/2019 LATANOPROST 0.005% EYE DROPS LAST FILLED 09/29/2019 TRESIBA FLEXTOUCH LAST FILLED 11/04/2019 -TAKES 10 UNITS A DAY UNLESS BLOOD SUGAR IS OVER 150 THEN SHE TAKES 12 UNITS OTC: ASPIRIN 81MG IN2O BARRIER CREAM VITAMIN C 1000MG POTASSIUM 99MG MAGNESIUM 500MG BIOFREEZE ROLL ON MELATONIN 5MG
[2019-12-03] MEDS ORDERED: NS IV 1000 ML 1,000 ML IV SCH (15:20)
[2019-12-03] MEDS ORDERED: ATOR10TA PO (15:22)
--- NOTE | 2019-12-03 15:23 | Discharge Inst-Post CATH ---
Discharge Inst-CATH/EP Problems Reviewed?: Yes Post Cardiac Cath/EP D/C Inst Follow Up/Plan Appointment with Dr. ARCEO's office in 4 weeks <b>CARDIAC CATH/EP PROCEDURE DISCHARGE INSTRUCTIONS</b> ACTIVITY * Go Home directly and rest. * Limit activity of the leg (or wrist if it was used) for 7 days including aerobics, swimming, jogging, bicycling, etc. * Restrict stair-climbing for 7 days if possible, if not, climb up with your non-cath leg, then bring together on the same step. * Avoid lifting, pushing, pulling or excessive movement of the affected extremity for 7 days. * Customary sexual activity may be resumed after 2 days-use caution not to use a position that strains or causes pain to the affected extremity. * No driving for 24 hours. * NO SMOKING. * Avoid straining for bowel movements for 7 days. * Gentle walking on level ground is allowed. * Returning to work will depend on the type of procedure and the results. Your doctor will discuss this with you. CALL YOUR DOCTOR FOR ANY OF THE FOLLOWING: *If bleeding from the puncture site occurs- Apply gentle pressure to site with clean cloth and call your doctor or EMS. * If a knot or lump forms under the skin, increases in size, or causes pain. * If bruising appears to be worsening or moving further down your leg instead of disappearing. * Temperature above 101 F. CARE OF YOUR GROIN INCISION; * Bruising or purple discoloration of the skin near the puncture site is common. * You may shower only, no bathtub bathing for 5 days. Be careful to avoid slipping as your leg may feel stiff. * If a closure device was used on your femoral artery, please see the attached guide regarding care of the device and your leg. * Leave dressing on FOR 24 hours. CARE OF YOUR WRIST INCISION; * Bruising or purple discoloration of the skin near the puncture site is common. * You may shower. * DO NOT submerge wrist. * Leave dressing on FOR 24 hours. MARIAH ARCEO MD Dec 03, 2019 3:23 pm
--- NOTE | 2019-12-03 15:26 | Cardiac Cath Report ---
Cardiac Cath Report Physician (s)/[employer]al Boat [employer] (s) Physician MARIAH ARCEO MD Pre-Procedure Diagnosis Pre-Procedure Diagnosis: coronary artery disease Post-Procedure Note Procedure Start Date: Dec 03, 2019 Name of Procedure: Coronary angiogram Aortic arch angiogram Findings/Procedure Note PROCEDURE NOTE: 79-year-old lady with history of hypertension, hyperlipidemia and diabetes mellitus, had an abnormal stress test, has been having vague left arm pain, back pain. Scheduled for cardiac catheterization possible PTCA. After explaining the procedure to the patient, all pros and cons were explained, all questions were answered. The patient signed the consent and then she was placed on the cardiac catheterization laboratory. Groin was prepped SL fashion local anesthesia was used. Sheath placed in the right radial artery, Gilson cat heter was advanced to the left coronary system, angiogram was done and turned to the right carotid system angiogram was done, pulled back to the aortic arch and aortic arch angiogram was done. At the end of the procedure the sheath was removed. Vascular event was used FINDINGS: Hemodynamics LV was not measured, aortic valve was not crossed Aorta 85/40 mean of 44 ANATOMY: Left Main is free of obstructive disease Left Anterior Descending has mild disease nonobstructive disease, small vessel disease distally Left Circumflex has mild to moderate disease in the midportion nonobstructive disease Right Coronory Artery is dominant artery with mild disease nonobstructive disease Aorta evaluation done with aortic arch endograft showing mild hypertensive changes, no dissection or aneurysm, normal origin of the brachiocephalic artery, left carotid and left subclavian artery CONCLUSION: 1. Small vessel disease in the distal LAD otherwise mild disease in the LAD, mild to moderate disease in the mid circumflex artery. Nonobstructive disease 2. Mild hypertensive changes in the aortic arch, no dissection or aneurysm, normal great vessels of the neck DISCUSSION AND RECOMMENDATION: Medical therapy is recommended no intervention is needed Anesthesia Type: Conscious Sedation Estimated blood loss (mL): 10 ml Contrast Amount: 44 ml Total Radiation Dose: 322 mGy Post-Procedure Diagnosis Post-operative diagnosis: Chest pain Coronary artery disease Hypertension Hyperlipidemia Diabetes mellitus MARIAH ARCEO MD Dec 03, 2019 3:26 pm
== END 2019-12-03 20:19 | disposition home or self-care (01) ==
LOC: CATH 13:00 → CSD 15:53 → CATH 20:19
PROVIDERS: ATTEND Internal Medicine Cardiovascular Disease
DX: I25.10 Atherosclerotic heart disease of native coronary artery without angina pectoris (principal); I10 Essential (primary) hypertension; E78.5 Hyperlipidemia, unspecified; E11.9 Type 2 diabetes mellitus without complications; I49.3 Ventricular premature depolarization; M79.7 Fibromyalgia; M19.91 Primary osteoarthritis, unspecified site; I73.00 Raynaud's syndrome without gangrene; I65.23 Occlusion and stenosis of bilateral carotid arteries; Z86.73 Personal history of transient ischemic attack (TIA), and cerebral infarction without residual deficits; Z88.5 Allergy status to narcotic agent; Z88.1 Allergy status to other antibiotic agents; Z88.2 Allergy status to sulfonamides; Z91.048 Other nonmedicinal substance allergy status; Z91.011 Allergy to milk products; Z79.899 Other long term (current) drug therapy; Z79.02 Long term (current) use of antithrombotics/antiplatelets; Z79.82 Long term (current) use of aspirin
CPT/HCPCS: 36221; 71045; 80053; 80061; 85027; 85610; 85730; 87081; 93454; C1769; C1894; 36415

== ENCOUNTER → 2021-06-27 | Outpatient (CLI) | payer MEDICARE ==
[~2021-06-27] MED LIST changes: +ASCO100024 PO; +ASPI-999 PO; +ATOR10TA PO; -BACITRACIN INJECTION 50,000 UNIT, SODIUM CHLORIDE 0.9% IRRIGATIO 500 ML IR ONE; +DICL100G18 TP; -ENAL10TA PO; +ENAL10TA16 PO; +GABA-486 PO; -HEParin (CATH LAB) 1,000 ML IV ONE; +HYDR25TA4 PO; +INSU100V37 SQ; +LATA7.5D OU; -LIDOCAINE 1% INJ 20 ML 20 ML VIAL ONE; +MAGN500C15 PO; +MELA5TAB14 PO; +MENT118G TP; +MTP25TSR PO; -NS IV 1000 ML 1,000 ML IV ONE; -NS IV 1000 ML 1,000 ML ONE; +POTA99TA26 PO; +ROPI0.253 PO; +TRAM50TA3 PO; +[UNRECOGNIZED DRUG - CODE] TP
--- NOTE | 2021-06-27 16:49 | Diagnostic Imaging Report ---
INDICATION: Fall. FINDINGS: Three views of the lumbar column demonstrate mild scoliosis of the lumbar column with moderate degenerative disc disease and facet joint arthropathy. There is no traumatic malalignment or fracture. IMPRESSION: No fracture identified. Dictated by: Dictated on workstation # [id number]
--- NOTE | 2021-06-27 17:23 | Diagnostic Imaging Report ---
INDICATION: Right shoulder pain, fall. COMPARISON: None. FINDINGS: Three views of the right shoulder demonstrate a single rotator cuff anchor in the humeral head. There is moderate to severe degenerative joint disease. There is no fracture or dislocation. No osseous lesion. IMPRESSION: Degenerative joint disease. Dictated by: Dictated on workstation # [id number]
--- NOTE | 2021-06-27 18:20 | Diagnostic Imaging Report ---
INDICATION: Fall, right arm pain, injury. FINDINGS: Two views of the right humerus demonstrate no fracture or dislocation. Articular surfaces are age appropriate. No osseous lesion. IMPRESSION: No fracture identified. Dictated by: Dictated on workstation # [id number]
== END ==
LOC: RAD 15:12
PROVIDERS: ATTEND Family Medicine
DX: M19.011 Primary osteoarthritis, right shoulder (principal); M54.50 Low back pain, unspecified
CPT/HCPCS: 72100; 73030; 73060

== ENCOUNTER → 2022-04-14 | Outpatient (CLI) | payer MEDICARE | LOC: CARD 11:25 | PROVIDERS: ATTEND Internal Medicine Cardiovascular Disease | DX: R07.89 Other chest pain (principal); I10 Essential (primary) hypertension | CPT/HCPCS: 93306 ==

== ENCOUNTER → 2022-05-17 | Outpatient (CLI) | payer MEDICARE ==
[~2022-05-17] MED LIST changes: +REGADENOSON 0.4 MG/5 ML SYR (LEXISCAN) IV ONE
[2022-05-17] MEDS: CATHETER FLUSH 10 ML SYR IVP PRN ×2 (11:30→12:37)
[2022-05-17 12:31] VITALS: BP 118/66
== END ==
LOC: CARD 11:01
PROVIDERS: ATTEND Internal Medicine Cardiovascular Disease
DX: I25.10 Atherosclerotic heart disease of native coronary artery without angina pectoris (principal); I10 Essential (primary) hypertension
CPT/HCPCS: 78452; 93017; A9502

== ENCOUNTER → 2022-08-08 | Outpatient (CLI) | payer MEDICARE ==
[~2022-08-08] MED LIST changes: -ENAL10TA16 PO; +ENLP10T PO; -REGADENOSON 0.4 MG/5 ML SYR (LEXISCAN) IV ONE
--- NOTE | 2022-08-09 19:25 | Diagnostic Imaging Report ---
INDICATION: Routine screening. COMPARISON: No prior mammogram is available for comparison. EXAMINATION: 2D and 3D bilateral screening mammography was performed with CAD. The current study was also evaluated with a Computer Aided Detection (CAD) system. FINDINGS: Scattered fibroglandular densities are identified, bilaterally. There are scattered benign calcifications in both breasts. No mass or malignant-appearing microcalcifications are seen. Axillae are unremarkable. IMPRESSION: No mammographic features suspicious for malignancy are identified. ACR BI-RADS Category 2: Benign findings. Result letter will be mailed to the patient. Note: At least 10% of breast cancer is not imaged by mammography. Dictated by: Dictated on workstation # [id number]
== END ==
LOC: RAD 09:50
PROVIDERS: ATTEND Nurse Practitioner Family
DX: Z12.31 Encounter for screening mammogram for malignant neoplasm of breast (principal); Z78.0 Asymptomatic menopausal state
CPT/HCPCS: 77063; 77067

== ENCOUNTER → 2022-08-15 | Outpatient (CLI) | payer MEDICARE ==
--- NOTE | 2022-08-15 17:44 | Diagnostic Imaging Report ---
INDICATION: Osteoporosis COMPARISON: Baseline FINDINGS: AP Spine L1-L4: [BMD (g/cm2): na] [T-Score: na] [Z-Score: na] [BMD Previous: na] [BMD % Change: na] LT Hip Neck: [BMD (g/cm2): 0.677] [T-Score: -2.6] [Z-Score: -0.9] LT Hip Total: [BMD (g/cm2):0.769] [T-Score:-1.9] [Z-Score: -0.4] [BMD Previous: na] [BMD % Change: na] RT Hip Neck: [BMD (g/cm2):0.737] [T-Score:-2.2] [Z-Score:-0.5] RT Hip Total: [BMD (g/cm2):0.802] [T-score:-1.6] [Z-Score:-0.2] [BMD Previous:na] [BMD % Change:na] *Indicates significant change from prior examination based on 95% confidence level. World Health Organization criteria for BMD interpretation classify patients as Normal (T-score at or above -1.0), Osteopenic (T-score between -1.0 and -2.5) or Osteoporotic (T-score at or below -2.5). LIMITATIONS AND MODIFICATION: None. FRACTURE RISK (FRAX SCORE): The ten year probability of (%): Major Osteoporotic Fracture: [27.1] Hip Fracture: [10.6] IMPRESSION: 1. Osteopenia (Low bone mass). 2. Baseline examination. 3. See below National Osteoporosis Foundation guidelines on when to potentially initiate pharmacologic therapy. Based on the National Osteoporosis Foundation Guidelines, pharmacologic treatment should be initiated in any of the following, unless clinical conditions suggest otherwise: * Any patient with prior fragility fracture of the hip or vertebrae. A spine fracture indicates 5X risk for subsequent spine fracture and 2X risk for subsequent hip fracture. * Osteoporosis (T-score <-2.5). * Postmenopausal women and men age 50 and older with low bone mass/osteopenia (T-score between -1.0 and -2.5) by DXA and 10-year major osteoporotic fracture greater than 20% or a 10-year probability of hip fracture greater than 3%. These fracture risks are supplied above in the FRAX score, if applicable. * Clinician judgement and/or patient preferences may indicate treatment for people with 10-year fracture probabilities above or below these levels. Dictated by: Dictated on workstation # [id number]
== END ==
LOC: RAD 12:58
PROVIDERS: ATTEND Nurse Practitioner Family
DX: Z13.820 Encounter for screening for osteoporosis (principal); M85.80 Other specified disorders of bone density and structure, unspecified site; Z78.0 Asymptomatic menopausal state
CPT/HCPCS: 77080